=== PATIENT | female | born 1940 | race Two or more races ===

== ENCOUNTER 2022-11-29 16:11 | Inpatient (IN) | payer MEDICARE, MEDICAID ==
[~2022-11-29] VITALS: Ht 147.3 cm; Wt 36.7 kg
[2022-11-29] MEDS ORDERED: MAGN400C PO (16:46)
[2022-11-29] MEDS ORDERED: NITR0.4T SL (16:46)
[2022-11-29] MEDS ORDERED: FOLI1TAB94 PO (16:46)
[2022-11-29] MEDS ORDERED: CYAN100T44 PO (16:46)
[2022-11-29] MEDS ORDERED: METO25TA6 PO (16:46)
[2022-11-29] MEDS ORDERED: MORPHINE SULFATE 2 MG/1 ML DISP.SYRIN IV ONE ×2 (17:00→17:30)
--- NOTE | 2022-11-29 17:27 | NUR ---
PT IS IN ROOM #1B. DR WORTHINGTON EVALUATED THE PT.
[2022-11-29] MEDS ORDERED: ONDANSETRON 4 MG/2 ML VIAL IV ONE (17:30)
[2022-11-29 17:31] LABS: HEMATOCRIT 38.5 % (31.2-41.9); MEAN CORPUSCULAR VOLUME 91.3 fL (75.5-95.3); PLATELET COUNT (AUTO) 258 K/uL (179-408)
[2022-11-29 17:38] LABS: CARBON DIOXIDE 24 mmol/L (21-32); CHLORIDE 103 mmol/L (98-107); CREATININE 0.8 mg/dL (0.6-1.3); GLUCOSE 102 mg/dL (74-106); POTASSIUM 4.1 mmol/L (3.5-5.1); UREA NITROGEN, BLOOD 13 mg/dL (7-18)
[2022-11-29] MEDS ORDERED: MORPHINE SULFATE 2 MG/1 ML DISP.SYRIN ONE (17:42)
[2022-11-29] MEDS ORDERED: ONDANSETRON 4 MG/2 ML VIAL ONE (17:43)
[2022-11-29 17:46] LABS: ALANINE AMINOTRANSFERASE 22 U/L (14-59); ALKALINE PHOSPHATASE 212 U/L (50-136); ASPARTATE AMINOTRANSFERASE 20 U/L (15-37); BILIRUBIN,DIRECT 0.2 mg/dL (0.0-0.2); BILIRUBIN,TOTAL 0.5 mg/dL (0.2-1.0); LIPASE 40 U/L (73-393)
[2022-11-29] MEDS ORDERED: ASPIRIN 81 MG TAB.CHEW PO ONE (18:15)
[2022-11-29] MEDS ORDERED: ASPIRIN 81 MG TAB.CHEW ONE (18:40)
--- NOTE | 2022-11-29 22:05 | NUR ---
Patient has been admitted by Dr. Rico. Currently no avaliable TELE beds due to floor being full. Holding patient in ER.
[2022-11-29] MEDS ORDERED: ENOXAPARIN SODIUM 40 MG/0.4 ML DISP.SYRIN SQ SCH (22:15)
[2022-11-29] MEDS ORDERED: HYDROCODONE/APAP 5-325MG TABLET PO PRN (22:15)
[2022-11-29] MEDS ORDERED: MAGNESIUM HYDROXIDE 30 ML LIQUID UDC PO PRN (22:15)
[2022-11-29] MEDS ORDERED: ACETAMINOPHEN 325 MG TABLET PO PRN (22:15)
[2022-11-29] MEDS ORDERED: NITROGLYCERIN 0.4 MG/TAB BOTTLE SL PRN (22:15)
[2022-11-29] MEDS ORDERED: TEMAZEPAM 15 MG CAPSULE PO PRN (22:15)
[2022-11-29] MEDS ORDERED: ONDANSETRON 4 MG/2 ML VIAL IV PRN (22:15)
[2022-11-30] MEDS ORDERED: METOPROLOL TARTRATE 50 MG TABLET ONE (00:53)
[2022-11-30] MEDS ORDERED: ENOXAPARIN SODIUM 40 MG/0.4 ML DISP.SYRIN SQ ONE (00:53)
[2022-11-30] MEDS: METOPROLOL TARTRATE 25 MG TABLET PO SCH ×2 (01:00→09:04)
[2022-11-30] MEDS ORDERED: PANTOPRAZOLE SODIUM 40 MG TABLET.DR PO ONE (06:59)
[2022-11-30] MEDS ORDERED: PANTOPRAZOLE SODIUM 40 MG TABLET.DR PO SCH (07:00)
--- NOTE | 2022-11-30 07:20 | NUR ---
Received report from DYAN Ocampo.
[2022-11-30 07:23] LABS: HEMATOCRIT 35.9 % (31.2-41.9); MEAN CORPUSCULAR HEMOGLOBIN 29.6 uug (24.7-32.8); MEAN CORPUSCULAR VOLUME 90.6 fL (75.5-95.3); PLATELET COUNT (AUTO) 242 K/uL (179-408); THYROID STIMULATING HORMONE 2.101 mIU/mL (0.358-3.740)
[2022-11-30 07:28] LABS: BILIRUBIN,TOTAL 0.5 mg/dL (0.2-1.0); CREATININE 0.8 mg/dL (0.6-1.3); MAGNESIUM 1.8 mg/dL (1.8-2.4); PHOSPHOROUS 3.9 mg/dL (2.5-4.9); POTASSIUM 4.2 mmol/L (3.5-5.1); TOTAL PROTEIN, SERUM 6.9 g/dL (6.4-8.2)
[2022-11-30] MEDS ORDERED: FUROSEMIDE 20 MG/2 ML VIAL IV ONE (08:00)
[2022-11-30] MEDS ORDERED: FOLIC ACID 1 MG TABLET PO SCH (09:00)
[2022-11-30] MEDS ORDERED: CYANOCOBALAMIN 1,000 MCG TABLET PO SCH (09:00)
[2022-11-30] MEDS ORDERED: MAGNESIUM OXIDE 400 MG TABLET PO SCH (09:00)
[2022-11-30] MEDS ORDERED: ASPIRIN EC 81 MG TABLET.DR PO SCH (09:00)
[2022-11-30] MEDS ORDERED: MAGNESIUM OXIDE 400 MG TABLET ONE (09:21)
[2022-11-30] MEDS ORDERED: FUROSEMIDE 20 MG/2 ML VIAL ONE (09:21)
[2022-11-30] MEDS ORDERED: ASPIRIN EC 81 MG TABLET.DR PO ONE (09:21)
[2022-11-30] MEDS ORDERED: FOLIC ACID 1 MG TABLET ONE (09:22)
[2022-11-30] MEDS ORDERED: CYANOCOBALAMIN 1,000 MCG TABLET ONE (09:22)
--- NOTE | 2022-11-30 11:30 | NUR ---
Called [facility] to page Dr. Rico.
--- NOTE | 2022-11-30 11:30 | NUR ---
Called [facility] for an update on bed status, no bed avaliable at this time.
--- NOTE | 2022-11-30 14:41 | NUR ---
Spoke to Salomon regarding the doctors order for back brace for T11 compression fracture.
--- NOTE | 2022-11-30 15:00 | NUR ---
Dr. Jacky penaloza in ER.
--- NOTE | 2022-11-30 15:50 | NUR ---
Dilan from [facility] is at bedside.
--- NOTE | 2022-11-30 16:18 | NUR ---
Dilan left. Stated 3 things pt must know 1. ONLY hand wash brace 2. ONLY wear over clothing 3. do NOT sleep with it
--- NOTE | 2022-11-30 16:28 | NUR ---
Called [facility] to page Dr. Rico.
--- NOTE | 2022-11-30 16:30 | NUR ---
Spoke to Dr. Rico regarding pt's DC status.
[2022-11-30] MEDS ORDERED: PANT40TA49 PO (16:36)
[2022-11-30] MEDS ORDERED: METO25TA6 PO (16:36)
[2022-11-30] MEDS ORDERED: ASPI-618 PO (16:36)
[2022-11-30] MEDS ORDERED: CELE100C PO (16:36)
--- NOTE | 2022-11-30 17:17 | NUR ---
Patient discharged to home in stable condition with daughter (Yesica). A/O x4. NAD noted. Back braced provided. Written and verbal after care instructions given. Patient and daughter verbalizes understanding of instructions. Stressed follow up or return to ER for worsening s/s. Dilan keating [facility] also provided family with his card and to follow up on Saturday if any questions present itself.
[2022-11-30 17:19] VITALS: BP 139/80
[2022-11-30] MEDS ORDERED: DOCUSATE SODIUM 100 MG CAPSULE PO SCH (21:00)
== END 2022-11-30 17:17 | disposition home health service (06) | DRG 281 ==
LOC: ER 16:11 → TRANSITION 21:11
PROVIDERS: ADMIT Internal Medicine; ATTEND Internal Medicine
DX: I21.4 Non-ST elevation (NSTEMI) myocardial infarction (principal); D68.69 Other thrombophilia; M48.54XA Collapsed vertebra, not elsewhere classified, thoracic region, initial encounter for fracture; E44.0 Moderate protein-calorie malnutrition; Z68.1 Body mass index [BMI] 19.9 or less, adult; G89.29 Other chronic pain; I10 Essential (primary) hypertension; I25.10 Atherosclerotic heart disease of native coronary artery without angina pectoris; Z20.822 Contact with and (suspected) exposure to COVID-19; M19.90 Unspecified osteoarthritis, unspecified site; M06.9 Rheumatoid arthritis, unspecified; Z74.09 Other reduced mobility; K83.8 Other specified diseases of biliary tract; K29.50 Unspecified chronic gastritis without bleeding
CPT/HCPCS: 36415; 71045; 83690; 83735; 84100; 84443; 84484; 85025; 86140; 93005; 93307; A4663; G0378; J1650; J1940; J2270; J2405